=== PATIENT | female | born 1995 | race African-American/Black ===

== ENCOUNTER 2017-04-09 03:59 | Emergency (ER) | payer OTHER ==
[~2017-04-09] VITALS: Ht 157.5 cm; Wt 47.6 kg
[~2017-04-09 03:59] MED LIST: FLAGYL PO
[2017-04-09 04:29] LABS: URINE SOURCE CLEAN CATCH
[2017-04-09 04:32] LABS: URINE APPEARANCE CLEAR; URINE BILIRUBIN NEG (NEG); URINE BLOOD NEG (NEG); URINE COLOR YELLOW; URINE GLUCOSE NEG (NEG); URINE KETONE NEG (NEG); URINE LEUKOCYTE ESTERASE 1+ (NEG); URINE NITRATE NEG (NEG); URINE PROTEIN NEG (NEG); URINE SPECIFIC GRAVITY 1.024 (1.003-1.035)
[2017-04-09 04:35] LABS: CULTURE INDICATED? YES; URBCS1 AUWI 0-2 /[HPF] (0-2); URINE BACTERIA AUWI 2+ (NEGATIVE); URINE SQUAMOUS EPITHELIAL CELL FEW /[HPF]
[2017-04-12 16:51] LABS: CHLAMYDIA TRACH Not Detected (Not Detected); N GONOR Not Detected (Not Detected)
== END 2017-04-09 05:21 | disposition home or self-care (01) ==
LOC: CED 03:59
PROVIDERS: Emergency Medicine
DX: N72 Inflammatory disease of cervix uteri (principal); N39.0 Urinary tract infection, site not specified
CPT/HCPCS: 81003; 84703; 87086; 87491; 87591; 87808; 87905; 96372; 99283; J0696